=== PATIENT | female | born 1945 | race Hispanic/Latino ===

== ENCOUNTER 2018-12-02 16:04 | Emergency (ER) | payer MEDICARE, OTHER ==
[~2018-12-02] VITALS: Ht 157.5 cm; Wt 97.5 kg
[~2018-12-02 16:04] MED LIST: AMITIZA24 MCG PO; ARICEPT5 MG PO; ASPIR 8181 MG PO; CYMBALTA30 MG PO; FAMOTIDINE20 MG PO; FENOFIBRATE145 MG PO; LANTUS 3ML100 UNITS/ SC; LASIX20 MG PO; LEVOCETIRIZINE D5 MG PO; METFORMIN HCL500 MG PO; MYRBETRIQ25 MG PO; NEXIUM40 MG PO; TRIAMTERENE-HCTZ1 EA PO; ZETIA10 MG PO
--- OUTSIDE RECORDS SUMMARY | 2018-12-02 16:06 | XMS REPORT ---
Author Author [facility] Address Unknown Phone Unavailable Care Team Providers Care Ship Pilot Name Role Phone Nick MANZO Unavailable Unavailable Antony JACMKAN Unavailable Unavailable Problems This patient has no known problems. Allergies, Adverse Reactions, Alerts This patient has no known allergies or adverse reactions. Medications This patient has no known medications. Results Test Description Test Time Test Comments Text Results Atomic Results Result Comments GASTRIC EMPTYING [place] [address] Patient Name: DEBORA LEBLANC MR #: [id number] : 1945 Age/Sex: 71/F Req #: [id number] Adm Physician: Ordered by: LEONARD MANZO MD Report #: [id number] Location: [place] Room/Bed: Procedure: [id number] NM/GASTRIC EMPTYING Exam Date: 04/20/17 Exam Time: 0845 REPORT STATUS: Signed Solid-phase gastric emptying study Reason for examination: Nausea and vomiting x 2 months The protocol used for this study is based on the Consensus Recommendations for Gastric Scintigraphy by the [place] [employer] and the Society of Nuclear Medicine. Clinical information: The patient is is diabetic; blood glucose level 80 mg/dL today. The patient has not had previous gastrointestinal surgery other than cholecystectomy in 1979. The patient is not on any medications expected to affect gastric motility. The patient has been fasting for at least 6 hours prior to this exam. Radiopharmaceutical: Tc-99m sulfur colloid 1 mCi Report: The radiopharmaceutical was added to 1/2 cup egg whites that were then prepared and served with 2 pieces of white bread toasted, 30 grams of jam and 4 ounces of water. The patient took the meal orally without difficulty. Images were obtained of the abdomen in the anterior and posterior projections at 10 minutes post the meal and at 1and 2 hours. Uptake was determined from the geometric mean of the anterior and posterior counts and the counts were corrected for decay of the radiolabel. The percent gastric retention of the labeled meal at: 1 hour was 37% (normal 30-90%) 2 hours was 8% (normal <60%) 3-hour and 4-hour measurements were not obtained because the gastric retention was less than 10% at 2 hours. Impression: The pattern of gastric emptying is normal. Scan findings do not support the clinical diagnosis of gastroparesis. Signed by: Dr. Kira Sexton M.D. on 04/20/2017 2:28 PM Dictated By: KIRA SEXTON MD 27 Transcribed By: MIREILLE on 04/20/171427 COPY TO: LEONARD MANZO MD CHEST SINGLE (PORTABLE) [place] [address] Patient Name: DEBORA LEBLANC MR #: [id number] : 1945 Age/Sex: 71/F Req #: [id number] [facility] Physician: Ordered by: SHAYLA VILLALOBOS [employer] Report #: [id number] Location: ER Room/Bed: Procedure: [id number] DX/CHEST SINGLE (PORTABLE) Exam Date: 03/08/17 Exam Time: 1606 REPORT STATUS: Signed PROCEDURE: A single AP view of the chest. COMPARISON: [facility], CT, CT ABDOMEN/PELVIS W, 08/03/2012, 11:21. INDICATIONS: DIARRHEA FINDINGS: Lines/tubes: None. Lungs: The lungs are well inflated and clear. There is no evidence of pneumonia or pulmonary edema. Pleura: There is no pleural effusion or pneumothorax. Heart and mediastinum: The heart and the mediastinum are unremarkable. Bones: No acute bony abnormality. IMPRESSION: 1. No acute cardiopulmonary abnormalities. Amy Lui M.D. Dictated by: Amy Liu M.D. on 03/08/2017 at 16:53 Electronically approved by: Amy Liu M.D. on 03/08/2017 at 16:53 Dictated By: AMY LIU MD 52 Transcribed By: ANTONIO on 03/08/171652 COPY TO: SHAYLA VILLALOBOS [employer] CT ABDOMEN/PELVIS W [place] [address] Patient Name: DEBORA LEBLANC MR #: [id number] : 1945 Age/Sex: 71/F Req #: [id number] Adm Physician: Ordered by: SHAYLA VILLALOBOS [employer] Report #: [id number] Location: ER Room/Bed: Procedure: [id number] CT/CT ABDOMEN/PELVIS W Exam Date: 03/08/17 Exam Time: 1630 REPORT STATUS: Signed PROCEDURE: CT ABDOMEN AND PELVIS WITH CONTRAST TECHNIQUE: The abdomen and pelvis were scanned utilizing a multidetector helical scanner from the diaphragm to the lesser trochanter after the IV administration of 100 cc of Isovue 370 and the oral administration of dilute Gastrografin. Coronal and sagittal multiplanar reformations were obtained. COMPARISON: [facility], CT, CT ABDOMEN/PELVIS W, 08/03/2012, 11:21. INDICATIONS: ABDOMINAL PAIN, UNABLE TO EAT, DIARRHEA FINDINGS: LOWER THORAX: Lung bases are clear. HEPATOBILIARY: Diffuse hepatic steatosis. No focal hepatic lesions. No intrahepatic biliary ductal dilation. Stable mild dilation of the common bile duct, which measures 1.1 cm at the grisel hepatis. Cholecystectomy clips. SPLEEN: No splenomegaly. PA NCREAS: No focal masses or ductal dilatation. ADRENALS: No adrenal nodules. KIDNEYS/URETERS: No hydronephrosis, stones, or solid mass lesions. Stable 1.3 x 1.2 x 1.3 cm partly exophytic cystic lesion in the anterior interpolar region of the left kidney (series 2, image 29), which measures simple fluid. PELVIC ORGANS/BLADDER: Bladder is under distended and shows no focal lesions. Uterus is unremarkable. No adnexal masses. PERITONEUM / RETROPERITONEUM: No free air or fluid. LYMPH NODES: No lymphadenopathy. VESSELS: Unremarkable. GI TRACT: No bowel dilation or evidence of obstruction. Appendix is well identified and normal in caliber. No pericolonic inflammatory changes. Extensive diverticulosis of the distal descending and sigmoid colon, without diverticulitis. BONES AND SOFT TISSUES: No acute bony abnormalities. Soft tissues are grossly unremarkable except for a small fat containing umbilical hernia. IMPRESSION: 1. no acute abdominopelvic abnormalities. Specifically, no acute abnormal findings in the bowel to explain the patient's symptoms. 2. Extensive distal descending and sigmoid colon diverticulosis, without diverticulitis. 3. Diffuse hepatic steatosis, without focal lesions. 4. Stable mild dilation of the common bile duct, likely reflecting post cholecystectomy status. Amy Liu M.D. Dictated by: Amy Liu M.D. on 03/08/2017 at 17:48 Electronically approved by: Amy iLu M.D. on 03/08/2017 at 17:48 Dictated By: AMY LIU MD 2002 Transcribed By: ANTONIO on 03/08/17 1748 COPY TO: SHAYLA VILLALOBOS NP
[2018-12-02] MEDS ORDERED: SODIUM CHLORIDE 0.9% 1000ML 1,000 ML IV STA (16:13)
--- NOTE | 2018-12-02 16:55 | Diagnostic Imaging Report ---
Frontal and lateral views of the chest. HISTORY: COUGH SOB, 3 weeks COMPARISON: None available. DISCUSSION: Lungs: Mildly increased interstitial markings, most notably in a peribronchial distribution of the mid to lower lungs, left greater than right. No evidence of a consolidative pneumonia or pulmonary alveolar edema. Pleura: No pleural effusion or pneumothorax. Heart and mediastinum: The cardiomediastinal silhouette appears unremarkable. Left hilar calcification, likely a lymph node. Bones and soft tissues: Appear unremarkable. IMPRESSION: 1. Findings compatible with a nonspecific bronchitis. 2. No consolidative pneumonia. Signed by: Dr. Kyle Perez D.O., M.M.M. on 12/02/2018 4:51 PM
[2018-12-02 17:14] LABS: BASOPHILS # (AUTO) 0.1 (0.0-0.1); BASOPHILS % 0.4 % (0.0-1.0); EOSINOPHILS # (AUTO) 0.3 (0.0-0.4); EOSINOPHILS % 2.3 % (0.0-6.0); HEMATOCRIT 41.4 % (34.2-44.1); HEMOGLOBIN 13.8 g/dL (12.0-16.0); LYMPHOCYTES # (AUTO) 2.5 (1.0-3.2); LYMPHOCYTES % 19.6 % (18.0-39.1); MEAN CORPUSCULAR HEMOGLOBIN 30.7 pg (28-32); MEAN CORPUSCULAR HGB CONC 33.3 g/dL (31-35); MONOCYTES # (AUTO) 0.6 (0.2-0.8); MONOCYTES % 5.1 % (4.4-11.3); NEUTROPHILS # (AUTO) 8.9 (2.1-6.9); NEUTROPHILS % 71.7 % (38.7-80.0); PLATELET COUNT 439 x10e3/uL (140-360); RED CELL DISTRIBUTION WIDTH 13.9 % (11.7-14.4)
[2018-12-02 17:25] LABS: ANION GAP 17.9 mmol/L (8-16); CALCIUM 10.2 mg/dL (8.4-10.2); POTASSIUM 3.9 mmol/L (3.5-5.1)
[2018-12-02] MEDS ORDERED: CEFTRIAXONE SOD 1 GM/NS 50 ML 50 ML IV NR (17:30)
[2018-12-02 17:32] LABS: CREATINE KINASE MB 1.6 ng/mL (0-5.0)
[2018-12-02 18:00] VITALS: BP 127/69
== END 2018-12-02 18:10 | disposition home or self-care (01) ==
LOC: ER 16:04
DX: R06.09 Other forms of dyspnea (principal); J20.9 Acute bronchitis, unspecified; I10 Essential (primary) hypertension; E11.9 Type 2 diabetes mellitus without complications
CPT/HCPCS: 36415; 71046; 80048; 82550; 82553; 83880; 84484; 85025; 87040; 93005; 99284; J0696; J7030

== ENCOUNTER 2019-11-30 14:04 | Emergency (ER) | payer MEDICARE, OTHER ==
[~2019-11-30] VITALS: Ht 160 cm; Wt 97.5 kg
--- OUTSIDE RECORDS SUMMARY | 2019-11-30 14:07 | XMS REPORT | Continuity of Care Document ---
Author Author [facility] t Organization [facility] Address [address] [place] [address] [address] [place] [address] Phone Unavailable Care Team Providers Care Die Cutter Apprentice Name Role Phone Lucas GALARZA MD PCP Antony JACKMAN Attphys Unavailable Lucas MANZO Attphylucas Unavailable Payers Payer Name Policy Type Policy Number Effective Date Expiration Date Lucas murphy [facility] [id number] 2016 00:00:00 [facility] [id number] 2012 00:00:00 [facility] Problems Condition Name Condition Details Condition Category Status Onset Date Resolution Date Last Treatment Date Treating Clinician Comments Source Abdominal pain Abdominal pain Problem Active [facility] Dehydration Dehydration Problem Active [facility] Diarrhea Diarrhea Problem Active [facility] Vomiting Vomiting Problem Active [facility] Allergies, Adverse Reactions, Alerts This patient has no known allergies or adverse reactions. Medications Ordered Medication Name Filled Medication Name Start Date Stop Da te Current Medication? Ordering Clinician Indication Dosage Frequency Signature (SIG) Comments Components Source Aspirin (Aspir 81) 81 Mg Tablet. Aspirin (Aspir 81) 81 Mg Tablet. Yes 81 Daily [facility] Donepezil Hcl (Aricept) 5 Mg Tablet Donepezil Hcl (Aricept) 5 Mg Tabl et Yes [address] [facility] Duloxetine Hcl (Cymbalta) 30 Mg Capsule. Duloxetine Hcl (Cymbalta) 30 Mg Capsule.dr Yes 60 Daily [facility] Esomeprazole Magnesium (Nexium) 40 Mg Capsule.dr Tripp prazole Magnesium (Nexium) 40 Mg Capsule.dr Yes 40 Daily [facility] Ezetimibe (Zetia) 10 Mg Tablet Ezetimibe (Zetia) 10 Mg Tablet Yes 10 Daily [facility] Famotidine 20 Mg Tab Famotidine 20 Mg Tab Yes 20 Daily [facility] Fenofibrate Nanocrystallized (Fenofibrate) 145 Mg Tabl et Fenofibrate Nanocrystallized (Fenofibrate) 145 Mg Tablet Yes 160 Daily [facility] Furosemide (Lasix) 20 Mg Tablet Furosemide (Lasix) 20 Mg Tablet Yes 20 Daily [facility] Insulin Glargine (Lantus 3ML Pen) 100 Units/1 Ml Inj I nsulin Glargine (Lantus 3ML Pen) 100 Units/1 Ml Inj Yes 20 Daily [facility] Insulin Glargine (Lantus 3ML Pen) 100 Units/1 Ml Inj I nsulin Glargine (Lantus 3ML Pen) 100 Units/1 Ml Inj Yes 35 Bedtime [facility] Levocetirizine Dihydrochloride 5 Mg Tablet Levocetiriz ine Dihydrochloride 5 Mg Tablet Yes 5 Daily [facility] Lubiprostone (Amitiza) 24 Mcg Capsule Lubiprostone (Amitiza) 24 Mcg Capsule Yes 24 Twice A Day [facility] Metformin Hcl 500 Mg Tablet Metformin Hcl 500 Mg Tablet Yes 1000 Twice A Day [facility] Mirabegron (Myrbetriq) 25 Mg Tab.er.24h Mirabegron (Myrbetri q) 25 Mg Tab.er.24h Yes [address] [facility] Triamterene/Hctz (Triamterene-Hctz 37.5-25 Mg Tb) 1 Ea Tab Triamterene/Hctz (Triamterene-Hctz 37.5-25 Mg Tb) 1 Ea Tab Yes 1 Daily [facility] Procedures Procedure Date / Time Performed Performing Clinician [facility] e X-ray of chest, two views 2018-12-02 00:00:00 SAMMY JACKMAN [facility] Encounters Start Date/Time End Date/Time Encounter Type Admission Type Attendi [facility] Care Department Encounter ID Source 2018-12-02 16:04:00 2018-12-02 18:10:00 Departed Emergency Room 1 SAMMY JACKMAN [facility] [id number] [facility] Results Test Description Test Time Test Comments Results Result Comments Source SCR MAMM BILATERAL KRYSTAL CAD DIGITAL 2018-12-10 15:23:12 - SCR MAMM BILATERAL KRYSTAL CAD DIGITALBILATERAL DIGITAL SCREENING MAMMOGRAM 3D/2D WITH CAD: 12/10/2018CLINICAL: Asymptomatic. Digital breast tomosynthesis was performed in addition to routine CC and MLO views. Current mammographic images were evaluated by either a [employer] M-Vu or a [employer] Modular ImageChecker CAD (computer aided detection system). Comparison is made to exams dated 11/03/2017 mammogram, 10/05 mammogram - [facility], and 12/21/2012 mammogram - [facility]. There are scattered fibroglandular tissues in both breasts. There is a benign mass in both breasts. There also are benign vascular calcifications and calcifications in the left breast. No suspicious mass, architectural distortion, malignant type calcification, or lymph node abnormality detected. Breast architecture is stable compared to prior exams.IMPRESSION: BENIGNThere is no mammographic evidence of malignancy. Resume annual screening mammography in one year. Laina Hammond MD hs/pen rad:12/10/2018 15:23:12 Merchandising Consultant: Vy Phillips , [facility] sent: BIRADS 1-2 Normal Mammogram BI-RADS: 2 Benign B-Type Natriuretic Peptide 2018-12-02 17:41:00 Test Item B-Type Natriuretic Peptide (test code = 08884-6) 15.7 0-100 [facility] Center[facility] Kinase [id number] 17:41:00* Test Item Value Reference Range Interpretation Comments Creatine Kinase MB (test code = 46332-3) 1.60 0-5.0 [facility] CenterTroponin [id number] 17:41:00* Test Item Value Reference Range Interpretation Comments Troponin I (test code = JMJ3825) 0.003 0-0.300 [facility] Rintk9080-41-48 17:30:00* Test Item Value Reference Range Interpretation Comments Sodium Level (test code = 2951-2) 142 136-145 [facility] CenterPotassium Rqerb2802-32-30 17:30:00* Test Item Value Reference Range Interpretation Comments Potassium Level (test code = 2823-3) 3.9 3.5-5.1 [facility] CenterChloride Nwxma7731-54-44 17:30:00* Test Item Value Reference Range Interpretation Comments Chloride Level (test code = 2075-0) 103 98-107 [facility] CenterCarbon Dioxide Orxsq0309-99-56 17:30:00* Test Item Value Reference Range Interpretation Comments Carbon Dioxide Level (test code = 2028-9) 25 22-29 [facility] CenterAnion [id number] 17:30:00* Test Item Value Reference Range Interpretation Comments Anion Gap (test code = 97214-1) 17.9 8-16 H [facility] CenterBlood Urea Vixpwfna1639-47-73 17:30:00* Test Item Value Reference Range Interpretation Comments Blood Urea Nitrogen (test code = 3094-0) 28 7-26 H [facility] CenterCreatinine2019-06-09 17:30:00* Test Item Value Reference Range Interpretation Comments Creatinine (test code = 2160-0) 1.00 0.57-1.11 [facility] CenterBUN/Creatinine Wxmbl9187-95-31 17:30:00* Test Item Value Reference Range Interpretation Comments BUN/Creatinine Ratio (test code = 3097-3) 28 6-25 H [facility] CenterEstimat Glomerular Filtration Rate 2018-12-02 17:30:00* Test Item Value Reference Range Interpretation Comments Estimat Glomerular Filtration Rate (test code = 410982948) 55 >60 L Ranges were taken from the National Kidney Disease Education Program and the [facility] literature.Reference ranges:60 or greater: Kurgmm05-64 ( for 3 consecutive months): Chronic kidney disease 15 or less: Kidney failureHCA [facility] Healthcare Medical CenterGlucose Awdhi5128-07-74 17:30:00* Test Item Value Reference Range Interpretation Comments Glucose Level (test code = HWS3705) 98 74-118 [facility] CenterCalcium Spbxb5722-79-15 17:30:00* Test Item Value Reference Range Interpretation Comments Calcium Level (test code = 96095-9) 10.2 8.4-10.2 [facility] CenterCreatine Lsqewi0246-88-59 17:30:00* Test Item Value Reference Range Interpretation Comments Creatine Kinase (test code = 2157-6) 53 29-168 [facility] CenterWhite Blood Oaram3949-52-47 17:15:00* Test Item Value Reference Range Interpretation Comments White Blood Count (test code = 6690-2) 12.47 4.8-10.8 H [facility] CenterRed Blood Mztrq2512-84-98 17:15:00* Test Item Value Reference Range Interpretation Comments Red Blood Count (test code = 789-8) 4.50 3.6-5.1 [facility] CenterHemoglobin2019-06-09 17:15:00* Test Item Value Reference Range Interpretation Comments Hemoglobin (test code = 71183-6) 13.8 12.0-16.0 [facility] CenterHematocrit2019-06-09 17:15:00* Test Item Value Reference Range Interpretation Comments Hematocrit (test code = 4544-3) 41.4 34.2-44.1 [facility] CenterMean Corpuscular Kukpgu1049-45-89 17:15:00* Test Item Value Reference Range Interpretation Comments Mean Corpuscular Volume (test code = 787-2) 92.0 81-99 [facility] CenterMean Corpuscular Wcxepomoqr5401-89-88 17:15:00* Test Item Value Reference Range Interpretation Comments Mean Corpuscular Hemoglobin (test code = 785-6) 30.7 28-32 [facility] CenterMean Corpuscular Hemoglobin Concent 2018-12-02 17:15:00* Test Item Value Reference Range Interpretation Comments Mean Corpuscular Hemoglobin Concent (test code = 786-4) 33.3 31-35 [facility] CenterRed Cell Distribution Drkcd4774-20-68 17:15:00* Test Item Value Reference Range Interpretation Comments Red Cell Distribution Width (test code = 61438-1) 13.9 11.7 -14.4 [facility] CenterPlatelet Squxy5371-30-36 17:15:00* Test Item Value Reference Range Interpretation Comments Platelet Count (test code = 777-3) 439 140-360 H [facility] CenterNeutrophils (%) (Auto)2018-12-02 17:15:00 * Test Item Value Reference Range Interpretation Comments Neutrophils (%) (Auto) (test code = 41369-5) 71.7 38.7-80.0 [facility] CenterLymphocytes (%) (Auto)2018-12-02 17:15:00 * Test Item Value Reference Range Interpretation Comments Lymphocytes (%) (Auto) (test code = 736-9) 19.6 18.0-39.1 [facility] CenterMonocytes (%) (Auto)2018-12-02 17:15:00* Test Item Value Reference Range Interpretation Comments Monocytes (%) (Auto) (test code = 5905-5) 5.1 4.4-11.3 [facility] CenterEosinophils (%) (Auto)2018-12-02 17:15:00 * Test Item Value Reference Range Interpretation Comments Eosinophils (%) (Auto) (test code = 713-8) 2.3 0.0-6.0 [facility] CenterBasophils (%) (Auto)2018-12-02 17:15:00* Test Item Value Reference Range Interpretation Comments Basophils (%) (Auto) (test code = 706-2) 0.4 0.0-1.0 [facility] CenterIM GRANULOCYTES %2018-12-02 17:15:00* Test Item Value Reference Range Interpretation Comments IM GRANULOCYTES % (test code = IM GRANULOCYTES %) 0.9 0.0- 1.0 [facility] CenterNeutrophils # (Auto)2018-12-02 17:15:00* Test Item Value Reference Range Interpretation Comments Neutrophils # (Auto) (test code = 751-8) 8.9 2.1-6.9 H [facility] CenterLymphocytes # (Auto)2018-12-02 17:15:00* Test Item Value Reference Range Interpretation Comments Lymphocytes # (Auto) (test code = 27305-7) 2.5 1.0-3.2 [facility] CenterMonocytes # (Auto)2018-12-02 17:15:00* Test Item Value Reference Range Interpretation Comments Monocytes # (Auto) (test code = 742-7) 0.6 0.2-0.8 [facility] CenterEosinophils # (Auto)2018-12-02 17:15:00* Test Item Value Reference Range Interpretation Comments Eosinophils # (Auto) (test code = 711-2) 0.3 0.0-0.4 [facility] CenterBasophils # (Auto)2018-12-02 17:15:00* Test Item Value Reference Range Interpretation Comments Basophils # (Auto) (test code = 704-7) 0.1 0.0-0.1 [facility] CenterAbsolute Immature Granulocyte (auto 2018-12-02 17:15:00* Test Item Value Reference Range Interpretation Comments Absolute Immature Granulocyte (auto (louis t code = Absolute Immature Granulocyte (auto) 0.11 0-0.1 H [facility] CenterCHEST 2 FSJGV1145-83-89 16:49:00 [place] [address] Patient Name: DEBORA LEBLANC MR #: [id number] : 1945 Age/Sex: 73/F Req #: [id number] Adm Physician: Ordered by: SAMMY JACKMAN MD Report #: [id number] Location: ER Room/Bed: Procedure: [id number] 5 DX/CHEST 2 VIEWS Exam Date: 12/02/18 Exam Time: 16 30 REPORT STATUS: Signed Frontal and lateral views of the chest. HISTORY: COUGH SOB, 3 weeks COMPARISON: None available. DISCUSSION: Lungs: Mildly increased inte rstitial markings, most notably in a peribronchial distribution of the mid to lower lungs, left greater than right. No evidence of a consolidative pneumon ia or pulmonary alveolar edema. Pleura: No pleural effusion or pneumoth orax. Heart and mediastinum: The cardiomediastinal silhouette appears u nremarkable. Left hilar calcification, likely a lymph node. Bones and sof t tissues: Appear unremarkable. IMPRESSION: 1. Findings compatib le with a nonspecific bronchitis. 2. No consolidative pneumonia. Signed by: Dr. Kyle Perez D.O., M.M.M. on 12/02/2018 4:51 PM Dictated By: KYLE WILLS DO 50 Transcribed By: MIREILLE on 12/02/181650 COPY TO: SAMMY JACKMAN MD GASTRIC EMPTYING [place] [address] Patient Name: DEBORA LEBLANC MR #: [id number] : 1945 Age/Sex: 71/F Req #: [id number] Adm Physician: Ordered by: LEONARD MANZO MD Report #: [id number] Location: [place] Room/Bed: Procedure: [id number] NM/GASTRIC EMPTYING Exam D ate: 04/20/17 Exam Time: 0845 REPORT STATUS: Si gned Solid-phase gastric emptying study Reason for examination: Nausea a nd vomiting x 2 months The protocol used for this study is based on the Con sensus Recommendations for Gastric Scintigraphy by the [place] Neurogastroent erology and Motility Society and the Society of Nuclear Medicine. Clinica l information: The patient is is diabetic; blood glucose level 80 mg/dL today. The patient has not had previous gastrointestinal surgery other than cholecy stectomy in 1979. The patient is not on any medications expected to affect ga stric motility. The patient has been fasting for at least 6 hours prior to th is exam. Radiopharmaceutical: Tc-99m sulfur colloid 1 mCi Report: The radiopharmaceutical was added to 1/2 cup egg whites that were then prepared a nd served with 2 pieces of white bread toasted, 30 grams of jam and 4 ounces o f water. The patient took the meal orally without difficulty. Images were obt ained of the abdomen in the anterior and posterior projections at 10 minutes p ost the meal and at 1and 2 hours. Uptake was determined from the geometric me an of the anterior and posterior counts and the counts were corrected for deca y of the radiolabel. The percent gastric retention [...] on 04/20/171427 COPY TO: LEONARD MANZO MD [facility] (PORTABLE) [place] [address] Patient Name: DEBORA LEBLANC MR #: [id number] : 1945 Age/Sex: 71/F Req #: [id number] Adm Physician: Ordered by: SHAYLA VILLALOBOS OIL FIELD LABORER Report #: [id number] Location: ER Room/Bed: Procedure: [id number] DX/CHEST SINGLE (PORTABLE ) Exam Date: 03/08/17 Exam Time: 1606 REPORT S TATUS: Signed PROCEDURE: A single AP view of the [facility]. [facility] W, 08/03/2012, 11:21. LUCIANO CATIONS: DIARRHEA FINDINGS: Lines/tubes: None. Lungs: The lungs are well inflated and clear. There is no evidence of pneumonia or pulmo nary edema. Pleura: There is no pleural effusion or pneumothorax. H eart and mediastinum: The heart and the mediastinum are unremarkable. Bon es: No acute bony abnormality. IMPRESSION: 1. No acute cardiopulm onary abnormalities. Parth Liu M.D. Dictated by: Parth Liu M.D. on 03/08/2017 at 16:53 Electronically approved by: Oscar Liu M.D. on 03/08/2017 at 16:53 Dictated By: PARTH LUO MD 52 Transcr ibed By: ANTONIO on 03/08/171652 COPY TO: SHAYLA VILLALOBOS OIL FIELD LABORER CT ABDOMEN/PELVIS W [place] [address] Patient Name: DEBORA LEBLANC MR #: [id number] : 1945 Age/Sex: 71/F Req #: [id number] Adm Physician: Ordered by: SHAYLA VILLALOBOS OIL FIELD LABORER Report #: [id number] Location: ER Room/Bed: Procedure: [id number] CT/CT ABDOMEN/PELVIS W E xam Date: 03/08/17 Exam Time: 1630 REPORT STATU S: Signed PROCEDURE: CT ABDOMEN AND PELVIS WITH CONTRAST TECHNIQUE: The abdomen and pelvis were scanned utilizing a multidetector helical scanner from the diaphragm to the lesser trochanter after the IV administration of 1 00 cc of Isovue 370 and the oral administration of dilute Gastrografin. Mariola nal and sagittal multiplanar reformations were obtained. COMPARISON: [facility], CT, CT ABDOMEN/PELVIS W, 08/03/2012, 11:21. INDIC ATIONS: ABDOMINAL PAIN, UNABLE TO EAT, DIARRHEA FINDINGS: LOWER THORAX : Lung bases are clear. HEPATOBILIARY: Diffuse hepatic steatosis. No focal hepatic lesions. No intrahepatic biliary ductal dilation. Stable mild dilati on of the common bile duct, which measures 1.1 cm at the grisel hepatis. Ch olecystectomy clips. SPLEEN: No splenomegaly. PANCREAS: No focal masses or d uctal dilatation. ADRENALS: No adrenal nodules. KIDNEYS/URETERS: No hydr onephrosis, stones, or solid mass lesions. Stable 1.3 x 1.2 x 1.3 cm partly e xophytic cystic lesion in the anterior interpolar region of the left kidney ( series 2, image 29), which measures simple fluid. PELVIC ORGANS/BLADDER : Bladder is under distended and shows no focal lesions. Uterus is unremarkab le. No adnexal masses. PERITONEUM / RETROPERITONEUM: No free air or fluid. LYMPH NODES: No lymphadenopathy. VESSELS: Unremarkable. GI TRACT: No bowel dilation or evidence of obstruction. Appendix is well identified and no rmal in caliber. No pericolonic inflammatory changes. Extensive diverticulosi s of the distal descending and sigmoid colon, without diverticulitis. B ONES AND SOFT TISSUES: No acute bony abnormalities. Soft tissues are grossly unremarkable except for a small fat containing umbilical hernia. IMPRES EVE: 1. no acute abdominopelvic abnormalities. Specifically, no acute abnormal findings in the bowel to explain the patient's symptoms. 2. Extensive distal descending and sigmoid colon diverticulosis, without diverticulitis. 3. Diffuse hepatic steatosis, without focal lesions. 4. Stable mild dilation of the common bile duct, likely reflecting post cholecystectomy status. Parth Liu M.D. Dictated by: Parth Liu M.D. on at 17:48 Electronically approved by: Parth Liu M.D. on 03/08/2017 at 17:48 Dictated By: PARTH LIU MD Electronic ally Signed By: PARTH LIU MD on 03/08/171747 Transcribed By: ANTONIO on 1747 COPY TO: SHAYLA VILLALOBOS NP
--- NOTE | 2019-11-30 14:42 | Emergency Department Note ---
History of Present Illnes History of Present Illness Chief Complaint: General Medicine Complaints History of Present Illness This is a 74 year old female PATIENT IN FROM HOME WITH COMPLAINTS OF RIGHT ANKLE PAIN AND SWELLING SINCE YESTERDAY; PATIENT STATES SHE STEPPED WRONG GETTING INTO THE CAR AND TWISTED HER ANKLE; DENIES FALL. RATES PAIN 04/04. Historian: Patient, Family Member Arrival Mode: Car Shelter Supervisor Required: No Onset (how long ago): day(s) (YESTERDAY) Location: RIGHT ANKLE Quality: PAIN Radiation: non-radiation Severity: moderate, severe Onset quality: sudden Timing of current episode: constant Chronicity: new Context: recent illness Relieving factors: none Exacerbating factors: none Associated symptoms: denies other symptoms Treatments prior to arrival: none Past Medical/Family History Physician Review I have reviewed the patient's past medical and family history. Any updates have been documented here. Past Medical History Recent Fever: No Clinical Suspicion of Infectio: No New/Unexplained Change in Ment: No Past Medical History: Hypertension, Diabetes, Hyperlipedemia Other Medical History: Hyperlipidemia Depression Past Surgical History: Cholecysctectomy Social History Smoking Cessation: Never Smoker Counseling Performed: No Alcohol Use: None Any Illegal Drug Use: No TB Exposure/Symptoms: No Physically hurt or threatened: No Family History Family history of heart diseas: No Other Last Tetanus: UNKNOWN Any Pre-Existing Lines (PICC,: No Is patient up to date on immun: Yes Last Flu: UTD Last Pneumovax: UTD Review of Systems Review of Systems Constitutional: no symptoms EENTM: no symptoms Cardiovascular: no symptoms Respiratory: no symptoms Gastrointestinal: no symptoms Genitourinary: no symptoms Musculoskeletal: joint pain (RIGHT ANKLE) Neurological: no symptoms Psychological: no symptoms Endocrine: no symptoms Hematological/Lymphatic: no symptoms Review of other systems All other systems reviewed and negative. Physical Exam Related Data Allergies: Coded Allergies: No Known Allergies (Unverified , 03/08/17) Triage Vital Signs Vital Signs Date Time Temp Pulse Resp B/P (MAP) Pulse Ox O2 Delivery O2 Flow Rate FiO2 11/30/19 14:12 97.7 80 18 141/81 99 Physical Exam CONSTITUTIONAL Constitutional: well-developed, well-nourished HENT HENT: normocephalic, atraumatic, oropharynx clear/moist, nose normal HENT L/R: left ext ear normal, right ext ear normal EYES Eyes: PERRL, conjunctivae normal NECK Neck: ROM normal PULMONARY Pulmonary: effort normal, breath sounds normal CARDIOVASCULAR Cardiovascular: regular rhythm, heart sounds normal, capillary refill normal, normal rate GASTROINTESTINAL Abdominal: soft, nontender, bowel sounds normal GENITOURINARY Genitourinary: exam deferred SKIN Skin: warm, dry MUSCULOSKELETAL Musculoskeletal: tenderness, swelling (RIGHT ANKLE MEDIAL AND LATERAL AREA) NEUROLOGICAL Neurological: alert, oriented x 3, no gross motor or sensory deficits PSYCHOLOGICAL Psychological: mood/affect normal, judgement normal Results Imaging Imaging results reviewed: Yes Impressions Exam: Right ankle radiographs-3 views History: Right ankle injury. Comparison: None. Findings/Impression: No evidence of acute fracture or malalignment. Ankle mortise is preserved. Soft tissue edema in the lower leg, ankle, and hindfoot. Plantar calcaneal spur. Signed by: Dr. Wendy Braxton MD on 11/30/2019 3:07 PM Critical Care Time Subsequent provider I assumed direction of critical care for this patient from another provider of my specialty. Assessment & Plan Reassessment Reassessment CHECK XRAY, R/O FRACTURE VS SPRAIN Assessment & Plan Final Impression: (1) Ankle sprain Assessment & Plan DC HOME, RICE/JA WRAP, F/U PCP AND DR RAINEY (ORTHO) Depart Disposition: HOME, SELF-CARE Last Vital Signs Date Time Temp Pulse Resp B/P (MAP) Pulse Ox O2 Delivery O2 Flow Rate FiO2 11/30/19 14:12 97.7 80 18 141/81 99 Home Meds Reported Medications Insulin Glargine (LANTUS 3ML PEN) 100 Units/1 Ml Inj, 35 UNITS SC HS 03/08/17 Insulin Glargine (LANTUS 3ML PEN) 100 Units/1 Ml Inj, 20 UNITS SC DAILY 03/08/17 Mirabegron (MYRBETRIQ) 25 Mg Tab.er.24h, 25 MG PO DAILY 03/08/17 Ezetimibe (ZETIA) 10 Mg Tablet, 10 MG PO DAILY, #30 TAB 03/08/17 Aspirin (ASPIR 81) 81 Mg Tablet.dr, 81 MG PO DAILY 03/08/17 Duloxetine Hcl (CYMBALTA) 30 Mg Capsule.dr, 60 MG PO DAILY, #30 CAP 03/08/17 Donepezil Hcl (ARICEPT) 5 Mg Tablet, 10 MG PO HS, #60 TAB 03/08/17 Triamterene/Hctz (TRIAMTERENE-HCTZ 37.5-25 MG TB) 1 Ea Tab, 1 EACH PO DAILY, TAB 03/08/17 Furosemide (LASIX) 20 Mg Tablet, 20 MG PO DAILY, #30 TAB 03/08/17 Lubiprostone (AMITIZA) 24 Mcg Capsule, 24 MCG PO BID, #60 CAP 03/08/17 Metformin Hcl (METFORMIN HCL) 500 Mg Tablet, 1000 MG PO BID, #60 TAB 03/08/17 Esomeprazole Magnesium (NEXIUM) 40 Mg Capsule.dr, 40 MG PO DAILY PROTONIX [facility]APE[facility] FOR NEXIUM PER [facility] 03/08/17 Famotidine (FAMOTIDINE) 20 Mg Tab, 20 MG PO DAILY, #30 TAB 03/08/17 Levocetirizine Dihydrochloride (LEVOCETIRIZINE DIHYDROCHLORIDE) 5 Mg Tablet, 5 MG PO DAILY 03/08/17 Fenofibrate Nanocrystallized (FENOFIBRATE) 145 Mg Tablet, 160 MG PO DAILY 03/08/17 JASSON BRIDGES MD Nov 30, 2019 14:42
--- NOTE | 2019-11-30 15:10 | Diagnostic Imaging Report ---
Exam: Right ankle radiographs-3 views History: Right ankle injury. Comparison: None. Findings/Impression: No evidence of acute fracture or malalignment. Ankle mortise is preserved. Soft tissue edema in the lower leg, ankle, and hindfoot. Plantar calcaneal spur. Signed by: Dr. Wendy Braxton MD on 11/30/2019 3:07 PM
[2019-11-30 16:30] VITALS: BP 121/66
== END 2019-11-30 16:30 | disposition home or self-care (01) ==
LOC: ER 14:04
DX: S93.401A Sprain of unspecified ligament of right ankle, initial encounter (principal); X50.1XXA Overexertion from prolonged static or awkward postures, initial encounter; Y92.008 Other place in unspecified non-institutional (private) residence as the place of occurrence of the external cause; I10 Essential (primary) hypertension; E11.9 Type 2 diabetes mellitus without complications; E78.5 Hyperlipidemia, unspecified
CPT/HCPCS: 99283

== ENCOUNTER → 2019-12-11 | Outpatient (CLI) | payer MEDICARE, OTHER ==
--- NOTE | 2019-12-11 15:10 | Diagnostic Imaging Report ---
TECHNIQUE: 3 views of the right ankle HISTORY: ^[id number] ^[id number] ^SPRAIN OF RIGHT ANKLE. COMPARISON: 11/30/2019. IMPRESSION: No acute displaced fracture or dislocation. Joint spaces are within normal limits. Soft tissue swelling. Small calcaneal plantar bone spur. Radiographs are not sensitive for the evaluation of ligamentous injury. Recommend MRI if there is clinical concern. Signed by: Channing Webster MD on 12/11/2019 3:07 PM
== END ==
LOC: RAD 14:10
PROVIDERS: ATTEND Family Medicine
DX: M25.571 Pain in right ankle and joints of right foot (principal); S93.401D Sprain of unspecified ligament of right ankle, subsequent encounter

== ENCOUNTER → 2019-12-24 | Outpatient (CLI) | payer MEDICARE, OTHER ==
--- NOTE | 2019-12-24 12:05 | Diagnostic Imaging Report ---
TECHNIQUE: Magnetic resonance imaging of the RIGHT ANKLE was performed WITHOUT injected contrast. COMPARISON: None available. HISTORY: Right ankle pain FINDINGS: LIGAMENTS: Medial Complex: Deltoid intact. Lateral Complex: Tibiofibular, talofibular, and calcaneofibular ligaments intact TENDONS: Medial: Tendinopathy and peritendinous edema of the distal posterior tibial tendon. Lateral: Peroneal tendons intact Anterior: Anterior tibial and extensor tendons intact Achilles: Achilles tendon intact BONES: No focal or infiltrative bone marrow replacing abnormality. No acute fracture or osteonecrosis. JOINTS: Cartilage: Multifocal degenerative arthrosis of the midfoot. Other: Fluid within the joints is within physiologic limits. SOFT TISSUES: Infiltration of the sinus Tarsi. Tarsal tunnel clear. IMPRESSION: Distal posterior tibial tendinopathy and peritendinous edema. 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 Signed by: Dr. Tim Esparza M.D. on 12/24/2019 12:02 PM
== END ==
LOC: MRI 10:34
PROVIDERS: ATTEND Family Medicine
DX: M25.571 Pain in right ankle and joints of right foot (principal)

== ENCOUNTER 2021-09-04 20:00 | Emergency (ER) | payer MEDICARE, OTHER ==
[~2021-09-04] VITALS: Ht 160 cm; Wt 97.5 kg
[2021-09-04] MEDS ORDERED: KETOROLAC TROMETHAMINE 60 MG/2 ML VIAL IM ONE (21:45)
[2021-09-04] MEDS ORDERED: IBUPROFEN400 MG PO (21:54)
[2021-09-04 22:14] VITALS: BP 125/63
== END 2021-09-04 22:15 | disposition home or self-care (01) ==
LOC: ER 20:06
DX: M26.602 Left temporomandibular joint disorder, unspecified (principal); I10 Essential (primary) hypertension; E11.9 Type 2 diabetes mellitus without complications; E78.5 Hyperlipidemia, unspecified; F32.A Depression, unspecified
CPT/HCPCS: 70450; 70486; 99283; J1885